=== PATIENT | female | born 1995 | race American Indian/Alaskan Native ===

== ENCOUNTER 2019-04-07 18:52 | Emergency (ER) | payer SELFPAY ==
[2019-04-07 19:05] VITALS: BP 129/82
[2019-04-07] MEDS ORDERED: IBUPROFEN PO ONE ×2 (19:08→19:11)
--- NOTE | 2019-04-07 19:08 | Event Note ---
ED Screening Note Date of service: 04/07/19 Time: 19:03 ED Screening Note: 23 y o female presents cc of lac to eye brow s/p fall from skating happened ANTHROPOMETRIST bleeding controlled This initial assessment/diagnostic orders/clinical plan/treatment(s) is/are subject to change based on patients health status, clinical progression and re- assessment by fellow clinical providers in the ED. Further treatment and workup at subsequent clinical providers discretion. Patient/guardian urged not to elope from the ED as their condition may be serious if not clinically assessed and managed. Initial orders include: motrin in traige
--- NOTE | 2019-04-07 19:39 | Cat Scan Report ---
CT head/brain wo con INDICATION / CLINICAL INFORMATION: MAIN: Fell while skateboarding. LT side laceration. Possible loss of consciousness.. TECHNIQUE: All CT scans at this location are performed using CT dose reduction for ALARA by means of automated e xposure control. COMPARISON: None available. FINDINGS: Ventricle size is normal. No mass or mass effect is seen. There is no evidence of intracranial hemorr joie. No obvious area of infarction is identified. No fracture is seen. Visualized paranasal sinuses are normal. IMPRESSION: No acute findings Signer Name: Jamal Diaz MD FACR Signed: 04/07/2019 7:34 PM Workstation Name: [id number]
--- NOTE | 2019-04-07 22:06 | Emergency Department Report ---
ED Head Injury/Laceration HPI - HPI Occurred When: Today Mechanism: Fall Location: Facial (left eyebrow) Symptoms: Loss of Consciousness: No, Nausea: No, Blurred Vision: No, Unusual Behavior: No, Headache: No, Swelling: No, Bruising: No, Break in Skin: No, Bleeding: No Other History: When he 3-year-old -[place] female presents to the emergency room for a left eyebrow laceration. Patient states that she was sk ateboarding she fell. Patient denies any nausea vomiting no LOC no blurred vision. Patient has no past medical history currently takes no medications on a daily basis and has no known drug allergies. Patient's last menstrual period was 03/08/19. ED General PMH - Social History Smoking Status: Never Smoker ED Review of Systems ROS: Stated complaint: HEAD INJURY/PAIN Other details as noted in HPI Comment: All other systems reviewed and negative Skin: other (cut to left eyebrow) Head Inj w/lac Physical Exam - Exam General: Vital signs noted. No distress. Alert and acting appropriately. Head: Yes PERRL, No Hemotympanum, No Hematoma/Ecchymosis, No Epistaxis, No Stepoff/Deformity, No Abrasion, No Foreign Body Wound Length (cm): 1 Laceration Location: Facial (left eyebrow) Chest, Abd, & Ext: No Neck Pain, No Clear Lung Sounds, No Chest Injury/Pain, No Regular Heart Rhythm, No Heart Murmur, No Abdominal Tenderness, No Back Tenderness, No Extremity Injury Neuroligical (Head Inj W/O Lac: No Lethargy, No Disorientation, No Focal Numbness, No Focal Weakness, No Normal Speech, No Normal Gait Exam: ) incomplete generic neurologic examination: no facial droop. Tongue midline. Extraocular movements intact bilaterally. Facial sensation intact to light touch in V1, V2, V3 distribution bilaterally strength 5 out of 5 in all extremities. Sensation intact to light touch in 4 extremities. Romberg's negative, heel to oneil intact, no pronator drift ED Disposition Clinical Impression: Minor head injury Qualifiers: Encounter type: initial encounter Qualified Code(s): S09.90XA - Unspecified injury of head, initial encounter Laceration of eyebrow, left Qualifiers: Encounter type: initial encounter Qualified Code(s): S01.112A - Laceration without foreign body of left eyelid and periocular area, initial encounter Disposition: DC-01 TO HOME OR SELFCARE Is pt being admited?: No Does the pt Need Aspirin: No Condition: Stable Instructions: Minor Head Injury (ED), Laceration (ED) Additional Instructions: Please take Tylenol as needed for headaches. Keep the wound clean and dry. Referrals: your, provider [Other] - 3-5 Days
== END 2019-04-07 21:50 | disposition home or self-care (01) ==
LOC: ED 18:52
DX: S01.112A Laceration without foreign body of left eyelid and periocular area, initial encounter (principal); W18.39XA Other fall on same level, initial encounter; Y93.51 Activity, roller skating (inline) and skateboarding; Y92.331 Roller skating rink as the place of occurrence of the external cause; Y99.8 Other external cause status
CPT/HCPCS: 70450; 99283